=== PATIENT | female | born 1950 | race Caucasian/White ===

== ENCOUNTER → 2018-08-08 17:07 | Outpatient (CLI) | payer MEDICARE ==
[~2018-08-08 17:07] MED LIST: AMBIEN10 MG PO; CYMBALTA60 MG PO; FLUTICASONE PRO16 GM NASAL; LYRICA75 MG PO; MECLIZINE HCL25 MG PO; MUCINEX DM ER1 EAC1 PO; OMEPRAZOLE20 M1 PO; PAMELOR 25 MG C25 MG PO; ZANAFLEX4 MG PO
[2018-08-18 09:43] VITALS: BMI 40.6
== END | disposition home or self-care (01) ==
LOC: D.US 17:00
PROVIDERS: ATTEND Family Medicine
DX: R60.0 Localized edema (principal)

== ENCOUNTER 2018-08-18 08:15 | Day surgery (SDC) | payer MEDICARE ==
[~2018-08-18] VITALS: Ht 160 cm; Wt 104.1 kg
--- NOTE | ~2018-08-18 | OP ---
PATIENT NAME: ZEINAB ROBERT MEDICAL RECORD: [id number] :54 LOCATION:D.OPS ADMISSION DATE: SURGEON: ANA HERRERA MD DATE OF OPERATION: 08/18/2018 PREOPERATIVE DIAGNOSES: 1. Gastroesophageal reflux disease. 2. Hiatal hernia. 3. Hypertension. 4. Hypercholesterolemia. POSTOPERATIVE DIAGNOSES. 1. Gastroesophageal reflux disease. 2. Hiatal hernia. 3. Hypertension. 4. Hypercholesterolemia. PROCEDURE: EGD with biopsies and manometry catheter placement. SURGEON: Ana Herrera MD REPORT OF PROCEDURE: Olympus endoscope was advanced through the mouth and esophagus. We were able to pass through the GE junction into hiatal hernia. We were able to pass through the diaphragm and get into the body and antrum of the stomach. We passed directly through the pylorus into the duodenum. We were able to make it to the second portion of the duodenum. No masses, lesions or ulcerations were noted. As we pulled the scope back, there was some inflammatory gastritis near the pylorus. A biopsy was performed and sent off for permanent specimen. A retroflexed view showed the patient had a large hiatal hernia. There were no other masses, lesions, or ulcerations visualized. The diaphragmatic hiatus was measured at approximately 38 cm from the teeth, and the GE junction was at 30 cm from the teeth. As we pulled back, we could see the GE junction. There was no sign of any ulcerations present. There were no signs of any masses, lesions, or strictures throughout the esophagus. A biopsy was taken at the lower third of the esophagus at the GE junction and sent off for permanent specimen. At this point, the scope was completely removed. Esophageal manometry catheter was then inserted. It was noted to be curling up in the hiatal hernia, so the scope was readvanced down and we were able to manipulate the tube pass the diaphragmatic hiatus into the body of the stomach until it rested in good position. At this point, the scope was removed. COMPLICATIONS: None. CONDITION: Stable. ANESTHESIA: TIVA. BLOOD LOSS: Minimal. TRANSINT:[id number] Voice Confirmation ID: [id number] DOCUMENT ID: [id number] OPERATIVE REPORT [id number] ZEINAB ROBERT ANA HERRERA MD CC: YADIRA SOTO DO [id number] DICTATION DATE: 08/18/181114 ASSEMBLER FOR PULLER OVER HAND: 08/18/18 1137 [facility] [address] [id number]
[2018-08-18 08:37] LABS: BASOPHILS 0.4 % (0-2); EOSINOPHILS 7.5 % (0-7); HEMATOCRIT 39.5 % (36.0-48.0); HEMOGLOBIN 12.6 g/dL (12-16); IMMATURE GRANULOCYTES 0.2 % (0-5); LYMPHOCYTES 29.5 % (15-50); MCH 27.1 pg (26.0-34.0); MCHC 31.9 g/dL (31.0-37.0); MCV 84.9 fL (80.0-100.0); MEAN PLATELET VOLUME 9.5 fL (7.4-10.4); MONOCYTES 6.6 % (2-11); NEUTROPHILS 55.8 % (40-80); PLATELET COUNT 208 10x3/uL (130-400); RBC 4.65 10x6/uL (4.00-5.40); WBC 4.8 10x3/uL (4.8-10.8)
[2018-08-18 08:49] LABS: CALC OSMOLALITY 281 mosm/kg (275-300); CALCIUM 8.7 mg/dL (8.5-10.1); CARBON DIOXIDE 29.2 mmol/L (21.0-32.0); CHLORIDE - SERUM 107 mmol/L (98-107); CREATININE - SERUM 0.8 mg/dL (0.6-1.3); GLUCOSE 89 mg/dL (74-106); POTASSIUM - SERUM 4.1 mmol/L (3.5-5.1); SODIUM 140 mmol/L (136-145); UREA NITROGEN 23 mg/dL (7-18); eGFR NON AFRICAN AMERICAN 76 mL/min (90-120)
[2018-08-18] MEDS ORDERED: AMBIEN10 MG PO (09:26)
[2018-08-18] MEDS ORDERED: CYMBALTA60 MG PO (09:26)
[2018-08-18] MEDS ORDERED: PAMELOR 25 MG C25 MG PO (09:26)
[2018-08-18] MEDS ORDERED: FLUTICASONE PRO16 GM NASAL (09:27)
[2018-08-18] MEDS ORDERED: OMEPRAZOLE20 M1 PO (09:27)
[2018-08-18] MEDS ORDERED: LYRICA75 MG PO (09:28)
[2018-08-18] MEDS ORDERED: ZANAFLEX4 MG PO (09:28)
[2018-08-18] MEDS ORDERED: MECLIZINE HCL25 MG PO (09:29)
[2018-08-18] MEDS ORDERED: MUCINEX DM ER1 EAC1 PO (09:29)
[2018-08-18 09:43] VITALS: BP 133/64; Ht 160 cm; Wt 104.1 kg
--- NOTE | 2018-08-18 12:18 | NUR ---
1202 IV DC'D. NO BLEEDING AT SITE. BANDAID APPLIED.
== END 2018-08-18 12:22 | disposition home or self-care (01) ==
LOC: D.OPS 08:15
PROVIDERS: ATTEND Surgery
DX: K21.9 Gastro-esophageal reflux disease without esophagitis (principal); K44.9 Diaphragmatic hernia without obstruction or gangrene; I10 Essential (primary) hypertension; E78.00 Pure hypercholesterolemia, unspecified; Z01.812 Encounter for preprocedural laboratory examination

== ENCOUNTER 2018-08-30 08:00 | Day surgery (SDC) | payer MEDICARE ==
[2018-08-29 13:39] LABS: BASOPHILS 0.5 % (0-2); HEMATOCRIT 38.8 % (36.0-48.0); HEMOGLOBIN 12.3 g/dL (12-16); IMMATURE GRANULOCYTES 0.2 % (0-5); LYMPHOCYTES 22.3 % (15-50); MCH 26.9 pg (26.0-34.0); MCHC 31.7 g/dL (31.0-37.0); MCV 84.9 fL (80.0-100.0); MEAN PLATELET VOLUME 9.2 fL (7.4-10.4); PLATELET COUNT 215 10x3/uL (130-400); RBC 4.57 10x6/uL (4.00-5.40); RDW 13.8 % (11.5-14.5); WBC 5.8 10x3/uL (4.8-10.8)
[2018-08-29 13:47] LABS: ANION GAP 12.1 mmol/L (8-16); CALCIUM 8.7 mg/dL (8.5-10.1); CARBON DIOXIDE 27.1 mmol/L (21.0-32.0); CREATININE - SERUM 0.9 mg/dL (0.6-1.3); POTASSIUM - SERUM 4.2 mmol/L (3.5-5.1)
[~2018-08-30] VITALS: Ht 160 cm; Wt 104.3 kg
[~2018-08-30 08:00] MED LIST changes: +HYDROCODON-ACE1 EAC7 PO
[2018-08-30 09:26] VITALS: BP 138/77; BMI 41.0
--- NOTE | 2018-08-30 14:22 | NUR ---
SCOPE PATCH BEHIND RT EAR ON ADMIT TO RR
[2018-08-30 14:45] VITALS: BP 143/70
--- NOTE | 2018-08-30 14:45 | NUR ---
PT ARRIVED TO UNIT TO ROOM 2237, ORUIENTATED TO ROOM CL IN REACH
[2018-08-30 15:54] VITALS: BP 143/70; BMI 40.8
--- NOTE | 2018-08-30 20:10 | NUR ---
PT RESTING IN BED. ALERT AND ORIENTED. NO SIGNS OF DISTRESS. BREATHING EVEN AND UNLABORED. PT STATES NO PROBLEMS AT THIS TIME. IV SITE RT AC DRESSING CLEAN DRY AND INTACT. NO SIGNS OF INFECTION. ABD INCISION CLEAN DRY AND INTACT. SCDS ON. WILL CONTINUE PLAN OF CARE. CALL LIGHT IN REACH. BED LOWERED AND LOCKED. BED RAILS UP X2.
[2018-08-30 21:14] VITALS: BP 163/77
[2018-08-31 01:40] VITALS: BP 161/72
[2018-08-31 05:02] VITALS: BP 161/75
--- NOTE | 2018-08-31 05:55 | NUR ---
I have reviewed this patient and I concur with the Shift Assessment completed by the Licensed Practical Nurse today this shift.
[2018-08-31 06:29] LABS: BASOPHILS 0.1 % (0-2); EOSINOPHILS 0.9 % (0-7); HEMATOCRIT 37.3 % (36.0-48.0); HEMOGLOBIN 11.8 g/dL (12-16); IMMATURE GRANULOCYTES 0.2 % (0-5); LYMPHOCYTES 11.5 % (15-50); MCH 26.5 pg (26.0-34.0); MCHC 31.6 g/dL (31.0-37.0); MCV 83.8 fL (80.0-100.0); MEAN PLATELET VOLUME 9.7 fL (7.4-10.4); MONOCYTES 5.8 % (2-11); NEUTROPHILS 81.5 % (40-80); PLATELET COUNT 219 10x3/uL (130-400); RBC 4.45 10x6/uL (4.00-5.40); RDW 14.1 % (11.5-14.5)
[2018-08-31 06:49] LABS: WBC 8.7 10x3/uL (4.8-10.8)
[2018-08-31 07:10] LABS: CALC OSMOLALITY 278 mosm/kg (275-300); CALCIUM 8.4 mg/dL (8.5-10.1); CARBON DIOXIDE 24.9 mmol/L (21.0-32.0); CHLORIDE - SERUM 104 mmol/L (98-107); CREATININE - SERUM 0.8 mg/dL (0.6-1.3); GLUCOSE 109 mg/dL (74-106); POTASSIUM - SERUM 3.9 mmol/L (3.5-5.1); SODIUM 138 mmol/L (136-145); UREA NITROGEN 17 mg/dL (7-18); eGFR NON AFRICAN AMERICAN 76 mL/min (90-120)
--- NOTE | 2018-08-31 07:54 | NUR ---
PT RESTING IN BED. CO OF PAIN MEDICATION CAUSING NAUSEA. NO S/S OF ACUTE DISTRESS. CL IN PLACE.
[2018-08-31 13:10] VITALS: Ht 160 cm; Wt 104.3 kg
[2018-08-31] MEDS ORDERED: REGLAN10 MG PO (13:13)
[2018-08-31] MEDS ORDERED: HYDROCODON-ACE1 EA10 PO (13:13)
--- NOTE | 2018-08-31 15:00 | NUR ---
DC IV WITH TIP IN TACT. DC EDUCATION DONE WITH PT. ALL BELONGIONGS SENT DOWN TO THE CAR WITH . PT TAKEN DOWN VIA WC. NO S/S OF ACUTE DISTRESS.
--- NOTE | 2018-09-02 09:41 | OP ---
PATIENT NAME: ZEINAB ROBERT MEDICAL RECORD: [id number] :54 LOCATION:D.OPS ADMISSION DATE: SURGEON: BANDAR HERRERA MD DATE OF OPERATION: 08/30/2018 PREOPERATIVE DIAGNOSES: 1. Gastroesophageal reflux disease. 2. Paraesophageal hernia. 3. Hypertension. 4. Hypercholesterolemia. POSTOPERATIVE DIAGNOSES: 1. Gastroesophageal reflux disease. 2. Paraesophageal hernia. 3. Hypertension. 4. Hypercholesterolemia. PROCEDURE: Laparoscopic paraesophageal hernia repair with Marin fundoplication. SURGEON: Bandar Herrera MD ORDER TAKERS SUPERVISOR: Alisia Etienne APRN REPORT OF PROCEDURE: The patient's abdomen was prepped and draped in sterile fashion. A Veress needle inserted in the left upper quadrant and the abdomen was insufflated. An 11-mm Visiport trocar was inserted in the midline. At this point, we could see the Veress needle and there was no sign of any injuries to bowel or surrounding structures. The Veress needle was removed and an 11-mm trocar was placed in the left upper quadrant under direct visualization. There were some adhesions present in the midline and in the left upper quadrant and these were teased down carefully with blunt dissection. We then placed a 5-mm trocar in the epigastrium, a 5-mm trocar in the left lateral abdomen and a final 5-mm trocar in the right lower lateral subcostal region. The liver retractor was inserted and the left lobe of the liver was elevated. We could see a large diaphragmatic hiatus with approximately the upper third of the stomach present up in the chest. This was under a lot of tension and with grasping it was difficult to get it to eviscerate it out of the chest cavity. We eventually took down the lesser omentum using Harmonic scalpel up to the right side of the right lars. Right side of the right lars was freed up and the peritoneum that was forming the hernia sac was brought down out of the chest cavity. Care was taken to make sure not to injure the patient's esophagus during this portion of the procedure. After we had this freed up, then we went to the greater curvature of the stomach and took down the short gastrics using Harmonic scalpel. This dissection was continued from the upper half of the stomach over the fundus up to the left side of the right lars. This peritoneum was scored and we were able to take this peritoneum down out of the chest cavity essentially removing the hernia sac. At this point, the GE junction would rest freely in the abdominal cavity without tension. The posterior vagus nerve was easily visualized and was noted to be intact. I could not clearly visualize the anterior vagus nerve. The hernia sac was then removed from the anterior aspect of the stomach, so we could better visualize the anatomy. We then reapproximated the esophageal hiatus posteriorly using interrupted 0 Polydeks times 3. There was good approximation of the tissue with closure of the hiatus around the distal esophagus. We then performed a 360-degree posterior wrap of OPERATIVE REPORT [id number] ZEINAB ROBERT SELINA the fundus around the distal aspect of the esophagus. This was performed with interrupted 0 Polydeks times 3 with the top and the bottom suture incorporating a bite of the esophagus. This appeared to rest in good position, with minimal tension. The indwelling OG tube was removed easily. We then inspected the area and could see no evidence of any bleeding or bile leakage. At this point, we irrigated out the abdomen one last time. The liver retractor was then removed. A Veress needle was used to close the 11-mm trocar site fascias using 0 Vicryls. At this point, the ports and insufflation were then removed. The wounds were irrigated out with normal saline and infused with 10 mL of 0.25% Marcaine with epinephrine. The skin incisions were then all closed with subcutaneous 5-0 Monocryl and dressed appropriately. COMPLICATIONS: None. CONDITION: Stable. ANESTHESIA: General endotracheal and local. BLOOD LOSS: Minimal. TRANSINT:[id number] Voice Confirmation ID: [id number] DOCUMENT ID: [id number] BANDAR HERRERA MD at 0941 CC: YADIRA SOTO DO [id number] DICTATION DATE: 08/30/18 1306 TOE LASTER: 08/30/18 1331 [facility] 08/31/[address] [facility] [address] [place] [address]
== END 2018-08-31 15:00 | disposition home or self-care (01) ==
LOC: D.MS 08:00 → D.OPS 08:00 → D.MS 13:26 → D.OPS 08-31 15:00
PROVIDERS: ATTEND Surgery
DX: K21.9 Gastro-esophageal reflux disease without esophagitis (principal); K44.9 Diaphragmatic hernia without obstruction or gangrene; I10 Essential (primary) hypertension; E78.00 Pure hypercholesterolemia, unspecified; Z01.812 Encounter for preprocedural laboratory examination

== ENCOUNTER → 2019-03-13 07:54 | Outpatient (CLI) | payer MEDICARE ==
[2018-08-31 13:10] VITALS: BMI 40.7
[~2019-03-13 07:54] MED LIST changes: +HYDROCODON-ACE1 EA10 PO; +REGLAN10 MG PO
== END | disposition home or self-care (01) ==
LOC: D.HCCECHO 03-08 08:30
PROVIDERS: ATTEND Internal Medicine Cardiovascular Disease
DX: I20.9 Angina pectoris, unspecified (principal); R06.00 Dyspnea, unspecified

== ENCOUNTER → 2019-03-15 11:27 | Outpatient (CLI) | payer MEDICARE ==
[2018-08-31 13:10] VITALS: BMI 40.7
== END | disposition home or self-care (01) ==
LOC: D.HCCECHO 11:27
PROVIDERS: ATTEND Internal Medicine Cardiovascular Disease
DX: R06.00 Dyspnea, unspecified (principal); I20.9 Angina pectoris, unspecified